=== PATIENT | female | born 2000 | race Two or more races ===

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

== ENCOUNTER 2019-01-27 06:23 | Day surgery (SDC) | payer OTHER ==
[~2019-01-27 06:23] MED LIST changes: -Acetaminophen TAB* 325 MG PO ONE; +Buffered Lidocaine 1% SYRIN* 1 ML/SYRINGE INTRADERM ONE; -Clindamycin 300 MG IVPREMIX(* 300 MG/50 ML SDV IVPB ONE; +Clindamycin 900 MG IVPREMIX(* 900 MG/50 ML SDV IV ONE; -Dexamethasone IV* 10 MG in NS 0.9% 50 ML* 50 ML IVPB ONE; +Dexamethasone IV* 4 MG/ML 1 ML (4 MG) ONE; +Famotidine IV* 10 MG/ML 2 ML (20 mg) IV ONE; -Famotidine IV* 10 MG/ML 2 ML (20 mg) IV SLOW PU ONE; +Famotidine IV* 10 MG/ML 2 ML (20 mg) ONE; -Ibuprofen TAB* 600 MG ONE; -Ibuprofen TAB* 600 MG PO ONE; +Lactated Ringers 1000 ML Bag* 1,000 ML IV SCH; -NS 0.9% 1000 ML* 1,000 ML IV ONE; +Ondansetron INJ* 2 MG/ML VIAL ONE; +Scopolamine 1.5 mg* PATCH ONE; -Vancomycin(*) 1,000 MG ADVAN IVPB ONE; -Vancomycin(*) 1,000 MG in NS 0.9% 250 ML* 250 ML IVPB SCH; -cefTRIAXone VIAL(*) 1,000 MG in NS 0.9% 50 ML* 50 ML IVPB ONE; -cefTRIAXone VIAL(*) 1,000 MG in NS 0.9% 50 ML* 50 ML IVPB SCH; -cefTRIAXone(*) 1 GM ADVAN ONE; -diPHENhydraMINE IV* 50 MG in NS 0.9% 50 ML* 50 ML IVPB ONE
[2019-01-27] MEDS ORDERED: Lidocaine 1% MPF wEPI 200,000* 30 ML SDV ONE (07:32)
[2019-01-27] MEDS ORDERED: Bupivacaine 0.25% W/EPI* 10 ML SDV ONE (07:32)
[2019-01-27] MEDS ORDERED: Midazolam* 1 MG/ML 5 ML VIAL (5 MG) ONE (07:34)
[2019-01-27] MEDS ORDERED: fentaNYL* 50 MCG/ML 2 ML VIAL (100 MCG VIAL) ONE ×2 (07:34→08:13)
[2019-01-27] MEDS ORDERED: DiMENhydriNATE IV* 50 MG/ML VIAL ONE (07:36)
[2019-01-27] MEDS ORDERED: Ketorolac INJ* 30 MG/ML 1 ML VIAL ONE (07:36)
[2019-01-27] MEDS ORDERED: Succinylcholine* 20 MG/ML 10 ML VIAL ONE (07:36)
[2019-01-27] MEDS ORDERED: Propofol* 10 MG/ML 20 ML BTL ONE ×2 (07:36→12:11)
[2019-01-27] MEDS ORDERED: Rocuronium* 10 MG/ML VIAL ONE (07:37)
[2019-01-27] MEDS ORDERED: Bupivacaine 0.25% SDV PF* 10 ML VIAL INJ ONE (07:56)
[2019-01-27] MEDS ORDERED: oxyCODONE TAB* 5 MG TAB PO PRN (08:53)
[2019-01-27] MEDS ORDERED: Naloxone* 0.4 MG/ML 1 ML VIAL IV PRN (08:53)
[2019-01-27] MEDS ORDERED: HYDROmorphone INJ1* 1 MG/ML SYRINGE IV PRN (08:53)
[2019-01-27] MEDS ORDERED: Ondansetron INJ* 2 MG/ML VIAL IV PRN (08:53)
[2019-01-27] MEDS ORDERED: Acetaminophen IV 1GM/100ML * 100 ML ONE (08:55)
[2019-01-27] MEDS ORDERED: HYDROmorphone INJ1* 1 MG/ML SYRINGE ONE (10:49)
[2019-01-27 13:11] VITALS: BP 111/74
== END 2019-01-27 13:53 | disposition home or self-care (01) ==
LOC: OR 06:23
PROVIDERS: ATTEND Plastic Surgery
DX: N62 Hypertrophy of breast (principal); D24.2 Benign neoplasm of left breast; D24.1 Benign neoplasm of right breast; R01.1 Cardiac murmur, unspecified; K21.9 Gastro-esophageal reflux disease without esophagitis; F41.8 Other specified anxiety disorders; Z86.010 Personal history of colon polyps
CPT/HCPCS: 81025; 88305; A9270-GY; A9272-GY; J0330; J1100; J1170; J1240; J1885; J2001; J2250; J2405; J2704; J3010; J3490

== ENCOUNTER 2019-01-28 23:44 | Observation (INO) | payer OTHER ==
[2019-01-29] MEDS ORDERED: NS 0.9% 1000 ML** 2,000 ML IV ONE (00:10)
[2019-01-29] MEDS ORDERED: Morphine 4 MG/ML VIAL (1 ml) 4 MG/ML VIAL IV ONE (00:11)
[2019-01-29] MEDS ORDERED: Ibuprofen TAB* 400 MG PO ONE (00:11)
[2019-01-29] MEDS ORDERED: Metoclopramide IV* 5 MG/ML 2 ML VIAL IV SLOW PU ONE (00:12)
[2019-01-29] MEDS ORDERED: Vancomycin(*) 1,000 MG in NS 0.9% 250 ML* 250 ML IVPB ONE (00:12)
--- NOTE | 2019-01-29 00:16 | ED ---
HPI Febrile Illness - HPI Summary HPI Summary: The patient is a 18 year old F presenting to [facility] accompanied by her mother with a chief complaint of a fever that increased in temperature at 1500 today. She had a low grade fever that started 01/28/19 and has increased in temperature since. Her temperature upon arrival was 102.1 degrees F. She reports that she had a post bilateral reduction mammaplasty 01/27/19 [facility] Dr. Dianelys MD. She states that her R breast has been swelling since the Sx and that she has associated pain underneath her R axillary. She rates the pain in her R breast an 8/10 in severity. She states that her L side also hurts but it is not as intense. She was not prescribed and ABX after the surgery when at home but did receive ABX directly after the surgery. She is allergic to amoxicillin. Upon her exam she had a HR of 150 BPM and her temperature maryuri to 103.1 degrees F. Her symptoms aggravated by nothing and are alleviated by nothing. - History of Current Complaint Chief Complaint: EDFever Time Seen by Provider: 01/28/19 23:59 Hx Obtained From: Patient Onset/Duration: Started Days Ago - 1, 01/28/19, Still Present, Worse Since - yesterday, 01/28/19 Timing: Constant Temperature: 38.9 C Initial Severity: Moderate Current Severity: Severe Pain Intensity: 8 Pain Scale Used: 0-10 Numeric Aggravating Factors: Nothing Alleviating Factors: Nothing Associated Signs and Symptoms: Joint Pain - R axial, Myalgia - breasts, Recent Surgery - Had a breast reduction on 01/27/19, Swelling - Pt states that her R breast has been swelling since afteer the Sx - Allergy/Home Medications Allergies/Adverse Reactions: Allergies Allergy/AdvReac Type Severity Reaction Status Date / Time amoxicillin Allergy Rash Verified 01/28/19 23:48 bee venom protein (honey bee) Allergy Anaphylatic Verified 01/28/19 23:48 Shock ceftriaxone Allergy Hives Verified 01/28/19 23:48 seafood Allergy Anaphylatic Uncoded 01/28/19 23:48 Shock PMH/Surg Hx/FS Hx/Imm Hx Previously Healthy: No Endocrine/Hematology History: Reports: Other Endocrine/Hematological Disorders - DVT Denies: Hx Anticoagulant Therapy, Hx Diabetes, Hx Thyroid Disease Cardiovascular History: Reports: Other Cardiovascular Problems/Disorders - Murmur Denies: Hx Cardiac Arrest, Hx Hypertension Respiratory History: Reports: Hx Asthma Denies: Hx Chronic Obstructive Pulmonary Disease (COPD) GI History: Reports: Hx Gastroesophageal Reflux Disease Denies: Hx Ulcer, Other GI Disorders History: Denies: Hx Dialysis Sensory History: Denies: Hx Contacts or Glasses, Hx Hearing Aid Opthamlomology History: Denies: Hx Contacts or Glasses Psychiatric History: Reports: Hx Anxiety - ON MEDS, Hx Depression - ON MEDS - Surgical History Surgical History: Yes Surgery Procedure, Year, and Place: Post bilateral reduction mammoplasty [facility] Dr. Dianelys MD Hx Anesthesia Reactions: No - Immunization History Date of Tetanus Vaccine: 2015 Date of Influenza Vaccine: 2015 Infectious Disease History: No Infectious Disease History: Denies: Hx Hepatitis, Hx Human Immunodeficiency Virus (HIV), Traveled Outside the [place] in Last 30 Days - Family History Known Family History: Positive: Seizure Disorder - Social History Alcohol Use: Occasionally Alcohol Amount: 1/2 CUP 2 MONTHS AGO Hx Substance Use: No Substance Use Type: Reports: None Hx Tobacco Use: No Smoking Status (MU): Never Smoked Tobacco Have You Smoked in the Last Year: No Review of Systems Positive: Fever - 102.1 F upon arrival, increased to 103. Negative: Photophobia ENT: Negative Negative: Abdominal Pain, Vomiting Positive: Arthralgia, Myalgia All Other Systems Reviewed And Are Negative: Yes Physical Exam - Summary Physical Exam Summary: VITAL SIGNS: Reviewed. GENERAL: Patient is a well-developed and nourished female who is lying comfortable in the stretcher. Patient is not in any acute respiratory distress. HEAD AND FACE: No signs of trauma. No ecchymosis, hematomas or skull depressions. No sinus tenderness. EYES: PERRLA, EOMI x 2, No injected conjunctiva, no nystagmus. EARS: Hearing grossly intact. Ear canals and tympanic membranes are within normal limits. MOUTH: Oropharynx within normal limits. NECK: Supple, trachea is midline, no adenopathy, no JVD, no carotid bruit, no c- spine tenderness, neck with full ROM CHEST: Pt has transparent dressing over both breasts. R breast is significantly enlarged and tender compared to the L which is soft and nontender. Tenderness in the R axillary LUNGS: Clear to auscultation bilaterally. No wheezing or crackles. CVS: Regular rate and tachycardic, S1 and S2 present, no murmurs or gallops appreciated. ABDOMEN: Soft, non-tender. No signs of distention. No rebound no guarding, and no masses palpated. Bowel sounds are normal. EXTREMITIES: FROM in all major joints, no edema, no cyanosis or clubbing. NEURO: Alert and oriented x 3. No acute neurological deficits. Speech is normal and follows commands. SKIN: Dry and warm Triage Information Reviewed: Yes Vital Signs On Initial Exam: Initial Vitals Temp Pulse Resp BP Pulse Ox 102.1 F 170 18 93/56 97 01/28/19 23:45 01/28/19 23:45 01/28/19 23:45 01/28/19 23:45 01/28/19 23:45 Vital Signs Reviewed: Yes Diagnostics - Vital Signs Vital Signs Temp Pulse Resp BP Pulse Ox 01/28/19 23:45 102.1 F 170 18 93/56 97 - Laboratory Result Diagrams: 01/28/19 23:59 01/28/19 23:59 Lab Statement: Any lab studies that have been ordered have been reviewed, and results considered in the medical decision making process. - Radiology CXR Radiology Interpretation Completed By: ED Physician Summary of Radiographic Findings: No acute infiltrate, enlarged R breast. Pending offical reading. Re-Evaluation - Re-Evaluation First Eval Re-Evaluation Time: :19 Change: Unchanged Comment: Dr. Ivory is evaluating the pt. Second Eval Re-Evaluation Time: 01:46 Change: Unchanged Comment: Pt will be admitted to [facility] for a surgery at 0300 01/29/19. Course/Dx - Course Course Of Treatment: The patient is a 18 year old F presenting to [facility] accompanied by her mother with a chief complaint of a fever that increased in temperature at 1500 today. She had a low grade fever that started 01/28/19 and has increased in temperature since. Her temperature upon arrival was 102.1 degrees F. She reports that she had a post bilateral reduction mammaplasty [facility] Dr. Dianelys MD. Upon PE it is found that she is tachycardic, Pt has transparent dressing over both breasts. R breast is significantly enlarged and tender compared to the L which is soft and nontender. There is tenderness in the R axillary. She has abnormal lab values in RBC, Hgb, Hct, MCV, MCH, and total protein. She received a CXR which found no acute infiltrate but her R breast was enlarged. She was given th following medications during her ED course : Morphine 4 mg IV, Reglan 10 mg IV, Motrin tab 800 mg PO, Vancomycin HCL 1000 mg in Sodium chloride, Ns 0.9% [address] Dianelys MD will admit the pt for a surgery at 0300 on 01/29/19. Pt is dx with a Right breast hematoma post surgery. - Diagnoses Provider Diagnoses: Breast hematoma after procedure - Provider Notifications Discussed Care Of Patient With: Thomas Ivory Time Discussed With Above Provider: 00:30 Instructed by Provider To: Admit As Inpatient Discharge - Sign-Out/Discharge Documenting (check all that apply): Patient Departure - admitted to [facility] Patient Received Moderate/Deep Sedation with Procedure: No - Discharge Plan Condition: Stable Disposition: ADMITTED TO [facility] - Billing Disposition and Condition Condition: STABLE Disposition: Admitted to [facility] - Attestation Statements Document Initiated by Tooe: Yes Documenting Scribe: Ham Marie Provider For Whom Eddie is Documenting (Include Credential): Kyler Bruce MD Scribe Attestation: IHam, scribed for Kyler Bruce MD on 01/29/19 at 0518. Scribe Documentation Reviewed: Yes Provider Attestation: The documentation as recorded by the Ham anthony accurately reflects the service I personally performed and the decisions made by me, Kyler Bruce MD Status of Scribe Document: Viewed
[2019-01-29 00:28] LABS: ABS Lymphocytes 1.2 10^3/ul (1.0-4.8); ABS Monocytes 0.9 10^3/ul (0-0.8); ABS Neutrophils 4.9 10^3/ul (1.5-7.7); Eosinophil % 0.3 %; Hematocrit 23 % (35-47); Hemoglobin 7.6 g/dL (12.0-16.0); Lymphocyte % 16.5 %; Mean Corpuscular HGB Conc 33 g/dL (31-36); Mean Corpuscular Hemoglobin 26 pg (27-31); Mean Corpuscular Volume 77 fL (80-97); Platelet Count 274 10^3/uL (150-450); Red Blood Count 2.95 10^6 /uL (3.70-4.87); Red Cell Distribution Width 14 % (10-15)
[2019-01-29 00:38] LABS: Activated Partial Thrombo Time 31.1 seconds (26.0-38.0); INR 1.25 (0.82-1.09)
[2019-01-29 00:45] LABS: Albumin 3.4 g/dL (3.2-5.2); Albumin/Globulin Ratio 1.4 (1-3); BUN/Creatinine Ratio 17.2 (8-20); Calcium 8.6 mg/dL (8.6-10.3); EGFR African American 144.6 (>60); EGFR Non-African American 119.5 (>60); Globulin 2.5 g/dL (2-4); Potassium 3.4 mmol/L (3.5-5.0); Total Bilirubin 0.3 mg/dL (0.2-1.0); Total Protein 5.9 g/dL (6.4-8.9)
[2019-01-29] MEDS ORDERED: diPHENhydraMINE IV* 50 MG/ML 1 ml VIAL (BENADRYL) IV ONE (02:04)
[2019-01-29] MEDS ORDERED: Midazolam* 1 MG/ML 2 ML VIAL (2 MG) ONE (03:27)
[2019-01-29] MEDS ORDERED: fentaNYL* 50 MCG/ML 5 ML VIAL (250 MCG VIAL) ONE (03:43)
[2019-01-29] MEDS ORDERED: Rocuronium* 10 MG/ML VIAL ONE (03:54)
[2019-01-29] MEDS ORDERED: Etomidate* 2 MG/ML 10 ML VIAL ONE (04:29)
[2019-01-29] MEDS ORDERED: Propofol* 10 MG/ML 20 ML BTL ONE (04:29)
[2019-01-29] MEDS ORDERED: Phenylephrine 40 MCG/ML SYRINGE ONE (04:29)
[2019-01-29] MEDS ORDERED: Lidocaine 2% PF * 5 ML VIAL ONE (04:29)
[2019-01-29] MEDS ORDERED: Succinylcholine* 20 MG/ML 10 ML VIAL ONE (04:29)
[2019-01-29] MEDS ORDERED: Ondansetron INJ* 2 MG/ML VIAL ONE (04:31)
[2019-01-29] MEDS ORDERED: Dexamethasone IV* 4 MG/ML 1 ML (4 MG) ONE (04:31)
[2019-01-29] MEDS ORDERED: Neostigmine Methylsulfate* 3 MG/3 ML SYRINGE ONE (04:42)
[2019-01-29] MEDS ORDERED: HYDROcodone/ACETAMIN 5-325 MG* 1 TAB PO PRN (04:54)
[2019-01-29] MEDS ORDERED: DiMENhydriNATE IV* 50 MG/ML VIAL IV PUSH PRN (04:54)
[2019-01-29] MEDS ORDERED: fentaNYL* 50 MCG/ML 2 ML VIAL (100 MCG VIAL) IV PRN (04:54)
[2019-01-29] MEDS ORDERED: Naloxone* 0.4 MG/ML 1 ML VIAL IV PRN (04:54)
[2019-01-29] MEDS ORDERED: Acetaminophen TAB* 325 MG PO PRN ×2 (04:54→07:03)
[2019-01-29] MEDS ORDERED: DiMENhydriNATE IV* 50 MG/ML VIAL ONE (05:35)
[2019-01-29] MEDS ORDERED: D5LR 1000 ML BAG* 1,000 ML IV SCH (07:00)
[2019-01-29] MEDS ORDERED: Al Hydrox/Mg Hydrox/Simet LIQ* 30 ML UDC PO PRN (07:01)
[2019-01-29] MEDS ORDERED: diPHENhydraMINE PO* 50 MG PO PRN (07:02)
[2019-01-29] MEDS ORDERED: Magnesium Hydroxide LIQ* 30 ML UDC PO PRN (07:02)
--- NOTE | 2019-01-29 07:16 | OP ---
DATE OF OPERATION: 01/29/19 - ROOM #343 DATE OF : 99 SURGEON: Thomas Ivory MD. ANESTHESIOLOGIST: Dr. Coats. ANESTHESIA: General. PRE-OP DIAGNOSIS: Right breast hematoma. POST-OP DIAGNOSIS: Right breast hematoma. OPERATIVE PROCEDURE: Exploration and drainage of hematoma, right breast. INDICATIONS: The patient is a 18-year-old woman who is status post bilateral reduction mammoplasty on 01/27/19 as an outpatient procedure. I saw her 1 day postop and she was doing well. Her mother called me late on the night of and informed me that the patent had a fever of 103 and the right breast was swollen, painful, and bruised. They were instructed to go to [facility] Emergency Department. Her heart rate on admission was 170, and she was febrile with a temperature up to 103. Systolic blood pressure was in the 90s. Heart rate came down to the 120s after a liter of crystalloid. CBC was done and this showed a hemoglobin of 7.6, hematocrit of 23, and white blood cell count of 7. On examination, the patient was noted to be alert and in no acute distress. Right breast was noted to be swollen, firm, and ecchymotic consistent with a right breast hematoma. No unusual erythema or crepitence was noted. FINDINGS: 200 CC of dark clotted hematoma; no active bleeding, no purulence, no necrotic tissue. ESTIMATED BLOOD LOSS: 200 cc of clotted hematoma. FLUIDS GIVEN: 2350 cc of crystalloid and 2 units of packed red blood cells. SPECIMENS: None. DRAINS: One 10-mm flat Rasheed-Boykin. COMPLICATIONS: None. DESCRIPTION OF PROCEDURE: The patient was brought to the operating room and placed on the operating room table in the supine position. General anesthesia was induced by Dr. Coats. Dr. Coats infused 2 units of packed red blood cells. The bilateral breasts were prepped with Betadine and draped sterilely. Sutures were removed from the vertical incision on the right breast and 200 cc of dark clotted hematoma was evacuated. The breast was irrigated with copious saline solution and no active bleeding was noted. The nipple areolar complexes and skin flaps all appeared viable. A 10-mm flat Rasheed-Boykin drain was placed in the right breast and sutured to the skin with a 3-0 Prolene suture. The vertical breast wound was reclosed with buried deep dermal sutures of 3-0 Vicryl and then running 4-0 Monocryl on the skin and several interrupted sutures of 5-0 Vicryl Rapide on the skin. A VAC Prevena dressing was applied. The patient tolerated the procedure well. There were no complications. All counts were reported as correct at the end of the procedure. The patient was taken to the recovery area in stable postoperative condition. [id number]/[facility] #: [id number] [facility] HOSPITALEnid
[2019-01-29 17:33] LABS: Hematocrit 31 % (35-47); Hemoglobin 10.3 g/dL (12.0-16.0); Mean Corpuscular HGB Conc 34 g/dL (31-36); Mean Corpuscular Hemoglobin 27 pg (27-31); Mean Corpuscular Volume 81 fL (80-97); Mean Platelet Volume 7.8 fL (7.4-10.4); Platelet Count 242 10^3/uL (150-450); Red Blood Count 3.81 10^6 /uL (3.70-4.87); Red Cell Distribution Width 16 % (10-15); White Blood Count 9.6 10^3/uL (3.5-10.8)
[2019-01-29] MEDS: HYDROcodone/ACETAMIN 5-325 MG* 1 TAB PO PRN (19:50)
[2019-01-30 06:05] LABS: Hematocrit 26 % (35-47); Mean Corpuscular HGB Conc 34 g/dL (31-36); Mean Corpuscular Hemoglobin 27 pg (27-31); Mean Corpuscular Volume 80 fL (80-97); Mean Platelet Volume 7.6 fL (7.4-10.4); Platelet Count 240 10^3/uL (150-450); Red Blood Count 3.29 10^6 /uL (3.70-4.87); Red Cell Distribution Width 16 % (10-15); White Blood Count 9.9 10^3/uL (3.5-10.8)
[2019-01-30] MEDS: HYDROcodone/ACETAMIN 5-325 MG* 1 TAB PO PRN (07:53)
[2019-01-30 08:00] VITALS: BP 102/61
[2019-01-30] MEDS ORDERED: Cholecalciferol TAB* 1000 UNITS PO SCH (09:00)
[2019-01-30] MEDS ORDERED: Cetirizine* 10 MG TAB PO SCH (09:00)
[2019-01-30] MEDS ORDERED: Sertraline* 25 MG TAB PO SCH (09:00)
[2019-01-30] MEDS ORDERED: Pantoprazole TAB * 40 MG TAB PO SCH (09:00)
--- NOTE | 2019-01-30 09:35 | DS ---
CC: Dr. Thomas Ivory; Kira Watts NP * DISCHARGE SUMMARY: DATE OF ADMISSION: 01/29/19 DATE OF DISCHARGE: 01/30/19 DATE OF PROCEDURE: 01/29/19 PRINCIPAL DIAGNOSIS: Right breast hematoma. ADDITIONAL DIAGNOSIS: Status post bilateral reduction mammoplasty on 01/27/19. PROCEDURES: Exploration and drainage of hematoma, right breast. SUMMARY: The patient is a 18-year-old female who underwent bilateral reduction mammoplasty as an outpatient procedure on 01/27/19 at [facility]. I saw her 1 day postop and she was doing well. Her mother called me late on the night of 01/28/19 and informed me that the patient had a fever of 103 and the right breast was swollen, painful, and bruised. They were instructed to go to [facility] Emergency Department. Her heart rate on admission was 170 and she was febrile with a temperature up to 103. Systolic blood pressure was in the 90s. Heart rate came down to 120s after a liter of crystalloid. CBC was done and this showed hemoglobin of 7.6, hematocrit of 23 and a white blood cell count of 7. On examination at that time, the patient was noted to be alert and in no acute distress. Right breast was noted to be swollen, firm and ecchymotic, consistent with a right breast hematoma. No unusual erythema or crepitance was noted. The patient was taken to the operating room emergently and exploration and drainage of right breast hematoma was performed under general anesthesia. She was transfused 2 units of packed red blood cells at that time as well. Operative findings were 200 cc of dark, clotted hematoma. No active bleeding was noted. There was no purulence or necrotic tissue noted. A Rasheed-Boykin drain was placed and a VAC Prevena dressing was applied. The patient was admitted to the hospital. The patient's postoperative convalescent course was uncomplicated. One day postop, she was noted to be afebrile with stable vital signs. She reported that she was feeling well and wanted to go home. Her hemoglobin 1 day postop was 9.0. White blood cell count was 9.9. The patient was discharged home with Rasheed-Boykin drain and VAC Prevena dressing in place. I will see her in my office in 3 days for followup. I have recommended she follow up with Kira Watts NP, her primary care provider as well. Her mother gives unusual history now of Denys having previous unexplained bruising on her cheeks raising a possible concern for bleeding diathesis and for this reason, I suggest that they discuss this with Kira Watts to see if see hematologic workup is indicated. [id number]/[facility] #: [id number] MTDD
== END 2019-01-30 10:50 | disposition home or self-care (01) ==
LOC: ED 23:44 → OR 01-29 03:05 → SSU 01-29 06:15 → INTOOBSV 01-29 06:15
PROVIDERS: ADMIT Plastic Surgery; ATTEND Plastic Surgery
DX: N64.89 Other specified disorders of breast (principal); R50.9 Fever, unspecified; Z88.0 Allergy status to penicillin; Z98.890 Other specified postprocedural states
CPT/HCPCS: 36415; 71045; 80053; 83605; 85025; 85027; 85610; 85730; 86850; 86900; 86901; 86922; 87040; 96361; 96365; 96375; 99284; A9270-GY; A9272-GY; G0378; J0330; J1100; J1200; J1240; J2250; J2270; J2405; J2704; J2710; J2765; J3010; J3370; P9040